=== PATIENT | male | born 1960 | race Hispanic/Latino ===

== ENCOUNTER 2024-07-04 06:04 | Observation (INO) | payer BC ==
[2024-07-04] MEDS ORDERED: Ondansetron PF 4 MG/2 ML Vial ONE (06:43)
[2024-07-04] MEDS ORDERED: Meclizine HCl 25 MG TAB ONE ×2 (06:44→08:21)
[2024-07-04 07:20] LABS: #Basophils 0.03 10x3/uL (0.0-0.2); %Basophils 0.3 % (0.0-1.0); %Eosinophils 0.4 % (0.0-10.0); %Lymphocytes 10.8 % (21.0-51.0); %Monocytes 4.4 % (0.0-10.0); %Neutrophils 83.8 % (42.0-75.0); Hematocrit 46.4 % (42.0-52.0); Hemoglobin 14.9 g/dL (14.0-18.0); Mean Corpuscular HGB CONC 32.1 g/dL (32.0-36.0); Mean Corpuscular Hemoglobin 25.6 pg (27.0-31.0); Mean Corpuscular Volume 79.9 fL (78.0-98.0); Mean Platelet Volume 11.1 fL (7.4-10.4); Platelet Count 210 10x3/uL (130-400); RBC Distribution Width 13.9 % (11.5-14.5); Red Blood Cell (RBC) Count 5.81 mill/uL (4.70-6.10)
[2024-07-04 07:41] LABS: ALT (SGPT) 28 U/L (Less than 45); AST (SGOT) 23 U/L (11-34); Albumin 3.8 g/dL (3.1-4.5); Alkaline Phosphatase 63 U/L (40-110); Anion Gap 10 mmol/L (10-20); BUN (Urea Nitrogen) 13 mg/dL (8.4-25.7); Bilirubin, Total 0.4 mg/dL (0.3-1.2); Calc. Creatinine Clearance 0 mL/min (70-130); Calcium 8.9 mg/dL (7.8-10.44); Carbon Dioxide 27 mmol/L (23-31); Chloride 106 mmol/L (98-107); Estimated GFR 93; Globulin 3.7 g/dL (2.4-3.5); Glucose 157 mg/dL (80-115); Magnesium 1.8 mg/dL (1.6-2.6); Potassium 4.4 mmol/L (3.5-5.1); Protein, Total 7.5 g/dL (5.8-8.1); Sodium 139 mmol/L (136-145)
[2024-07-04 07:44] LABS: Troponin I Less than 0.010 ng/mL (< 0.028)
[2024-07-04] MEDS ORDERED: Senokot S 8.6-50 MG TAB PO PRN (09:14)
[2024-07-04] MEDS ORDERED: Acetaminophen 325 MG TAB PO PRN (09:14)
[2024-07-04] MEDS ORDERED: traMADol HCl 50 MG TAB PO PRN (09:14)
[2024-07-04] MEDS ORDERED: Meclizine HCl 25 MG TAB PO PRN (09:16)
[2024-07-04 09:19] LABS: Bacteria/HPF None Seen HPF (None Seen); Bilirubin Negative (Negative); Blood, Urine 1+ (Negative); CAUTI Indications for Culture Alt mental st,lethar; Clarity Clear (Clear); Glucose, Urine (Dipstick) Normal (Negative); Ketone, Urine Negative (Negative); Leukocyte Negative Leu/uL (Negative); Nitrite Negative (Negative); Protein, Urine (Dipstick) Negative (Neg-Trace); Specific Gravity, Urine 1.035 (1.002-1.036); Squamous Epithelial None Seen HPF (0-3); Urobilinogen Normal mg/dL (Less than 2); WBC/HPF 0-3 HPF (0-3)
[2024-07-04 09:21] LABS: Urine Culture Reflex No No
[2024-07-04] MEDS ORDERED: Aspirin 325 MG TAB ONE (09:36)
[2024-07-04] MEDS ORDERED: Acetaminophen 500 MG TAB ONE (09:37)
[2024-07-04] MEDS ORDERED: Iopamidol-370 76% 500 ML MDV (1 ML CHARGE) ONE (11:51)
[2024-07-04 12:55] VITALS: BMI 36.3
[2024-07-04] MEDS: Tamsulosin HCl 0.4 MG CAP PO SCH (20:34)
[2024-07-05] MEDS: Dutasteride 0.5 MG CAP PO SCH (01:21)
[2024-07-05 03:55] LABS: #Basophils 0.04 10x3/uL (0.0-0.2); %Basophils 0.5 % (0.0-1.0); %Eosinophils 1.8 % (0.0-10.0); %Monocytes 6.6 % (0.0-10.0); %Neutrophils 59.8 % (42.0-75.0); Hematocrit 43.9 % (42.0-52.0); Mean Corpuscular HGB CONC 31.9 g/dL (32.0-36.0); Mean Corpuscular Hemoglobin 25.9 pg (27.0-31.0); Mean Corpuscular Volume 81.3 fL (78.0-98.0); Mean Platelet Volume 10.9 fL (7.4-10.4); Platelet Count 197 10x3/uL (130-400); RBC Distribution Width 13.8 % (11.5-14.5)
[2024-07-05 04:00] LABS: Hemoglobin A1c 5.9 % (4.0-6.0)
[2024-07-05 04:32] LABS: BUN (Urea Nitrogen) 20 mg/dL (8.4-25.7); Calc. Creatinine Clearance 125 mL/min (70-130); Calcium 8.6 mg/dL (7.8-10.44); Carbon Dioxide 25 mmol/L (23-31); Cardiac Risk 3.5 (Less than 4.5); Cholesterol 164 mg/dl (< 200 Desired); Estimated GFR 97; Glucose 119 mg/dL (80-115); HDL Cholesterol 47 mg/dL (>60 Neg Risk); LDL Cholesterol, Calculated 106 mg/dL; Triglycerides 53 mg/dL (Less than 150)
[2024-07-05 05:31] LABS: Anion Gap 14 mmol/L (10-20); Chloride 109 mmol/L (98-107); Potassium 4.5 mmol/L (3.5-5.1); Sodium 142 mmol/L (136-145)
[2024-07-05] MEDS: Valsartan 80 MG TAB PO SCH (08:51)
[2024-07-05 17:02] VITALS: BP 157/72; TEMP 98.6
== END 2024-07-05 17:08 | disposition home or self-care (01) ==
LOC: ERS 06:04 → 2SE 10:14
PROVIDERS: ADMIT Student in an Organized Health Care Education/Training Program; ATTEND Hospitalist
DX: R42 Dizziness and giddiness (principal); N40.0 Benign prostatic hyperplasia without lower urinary tract symptoms; I10 Essential (primary) hypertension; Z79.899 Other long term (current) drug therapy; Z98.890 Other specified postprocedural states
CPT/HCPCS: 36415; 70450; 70496; 70498; 70551; 80048; 80053; 80061; 81001; 83036; 83735; 84443; 84484; 85025; 93005; 96374; G0378; J2405; Q9967

== ENCOUNTER 2024-07-31 12:30 | Outpatient (CLI) | payer BC | END 2024-07-31 12:31 | disposition home or self-care (01) | LOC: PET 12:30 | PROVIDERS: ATTEND Urology | DX: C61 Malignant neoplasm of prostate (principal) | CPT/HCPCS: 78815; A9595 ==